=== PATIENT | female | born 1965 | race Caucasian/White ===

== ENCOUNTER 2024-09-25 06:19 | Day surgery (SDC) | payer BC ==
[2024-09-22 13:50] VITALS: BMI 18.6
[2024-09-25] MEDS ORDERED: LIDOCAINE 1%/EPI 1:100000 (20 ML MULTI DOSE VIAL) ONE (07:23)
[2024-09-25] MEDS ORDERED: BUPIVACAINE HCL/EPINEPHRINE/PF 30 ML VIAL IJ ONE (07:23)
[2024-09-25] MEDS ORDERED: MIDAZOLAM HCL 2 MG/2 ML SINGLE DOSE VIAL ONE (07:45)
[2024-09-25] MEDS ORDERED: PROPOFOL 40 ML ONE (07:46)
[2024-09-25] MEDS ORDERED: DEXAMETHASONE SOD PHOSPHATE 4 MG/1 ML VIAL ONE (07:47)
[2024-09-25] MEDS ORDERED: ONDANSETRON 4 MG/2 ML VIAL ONE (07:47)
[2024-09-25] MEDS ORDERED: KETOROLAC TROMETHAMINE 30 MG/1 ML VIAL ONE (07:47)
[2024-09-25] MEDS ORDERED: SUCCINYLCHOLINE CHLORIDE 200 MG/10 ML SYRINGE ONE (07:48)
[2024-09-25] MEDS ORDERED: PROPOFOL 20 ML ONE ×2 (08:26→08:45)
[2024-09-25] MEDS: ACETAMINOPHEN 500 MG TABLET (FP) PO ONE (10:15)
[2024-09-25] MEDS ORDERED: ACETAMINOPHEN 500 MG TABLET (FP) ONE (10:15)
[2024-09-25 13:22] VITALS: BP 110/70; PULSE 78; RESP 18; TEMP 97.4
== END 2024-09-25 10:45 | disposition home or self-care (01) ==
LOC: FASU 06:19
PROVIDERS: ATTEND Plastic Surgery
PROC: 0M9 Bursae and Ligaments, Drainage (ICD-10-PCS; principal; 2024-09-25 07:30)
DX: S70.11XA Contusion of right thigh, initial encounter (principal); S71.101A Unspecified open wound, right thigh, initial encounter; X58.XXXA Exposure to other specified factors, initial encounter; Y93.9 Activity, unspecified; Y92.9 Unspecified place or not applicable
CPT/HCPCS: 88305-TC